=== PATIENT | male | born 1935 | race Caucasian/White ===

== ENCOUNTER 2019-06-22 15:55 | Inpatient (IN) | payer MEDICARE, BC, SELFPAY ==
[2019-06-22] VITALS (9 sets, daily range): BP systolic 147–232; BP diastolic 73–110; PULSE 70–91; RESP 16–20; TEMP 36.3–36.4; O2SAT 96–99; BMI 21.2; BMI 20.5
--- NOTE | 2019-06-22 16:17 | CT_ITS ---
STUDY: CT BRAIN WITHOUT CONTRAST REASON FOR EXAM: Male, 84 years old. PT WAS FOUND BY LAYING ON THE PATIO FLOOR. STATES HE DID HAVE LOC AND HAS NO IDEA WHAT HAPPENED. RADIATION DOSAGE (If Supplied By Facility): CTDIvol = ( 44.99 ) mGy, DLP = ( 779.24 ) mGycm TECHNIQUE: Transaxial CT imaging of the brain was performed without administration of intravenous contrast material. Individualized dose optimization techniques were used for this CT. COMPARISON: No relevant priors. FINDINGS: There is right periorbital soft tissue swelling. Nondisplaced nasal fractures identified. Normal calvarium. There is mild cerebral atrophy with widening of the extra-axial spaces and ventricular dilatation. There are areas of decreased attenuation within the white matter tracts of the supratentorial brain, consistent with microvascular disease changes. Normal basal ganglia and thalami. Normal brainstem. Normal cerebellum. There is no intracranial hemorrhage. There are no findings of an acute ischemic infarction. There is an air-fluid level in the right maxillary sinus. CT/Brain/Head without Contrast IMPRESSION: 1. No acute intracranial hemorrhage or mass effect. 2. Right periorbital soft tissue swelling/hematoma. 3. Central parenchymal volume loss. White matter changes that are nonspecific but most commonly associated with chronic small vessel ischemic disease. 4. Nondisplaced nasal fractures. Electronically Signed: Benji Boland MD at 16:58 EDT , Service support ,
--- NOTE | 2019-06-22 16:17 | EKG12_ITS ---
Test Reason : AM EKG Blood Pressure : / mmHG Vent. Rate : 058 BPM Atrial Rate : 058 BPM P-R Int : 220 ms QRS Dur : 088 ms QT Int : 452 ms P-R-T Axes : 055 042 082 degrees QTc Int : 443 ms Sinus bradycardia with 1st degree A-V block Otherwise normal ECG When compared with ECG of 22-JUN-2019 16:17, MANUAL COMPARISON REQUIRED, DATA IS UNCONFIRMED Confirmed by BREA IGNACIO ([id number]), makeup editor ABRAHAM DELATORRE ([id number]) on 06/28/2019 9:02:50 AM Referred By: Marvin Kamraa Confirmed By:BREA IGNACIO
--- NOTE | 2019-06-22 16:19 | CT_ITS ---
STUDY: CT FACIAL BONES WITHOUT CONTRAST REASON FOR EXAM: Male, 84 years old. PT WAS FOUND BY LAYING ON THE PATIO FLOOR. STATES HE DID HAVE LOC AND HAS NO IDEA WHAT HAPPENED. RADIATION DOSAGE (If Supplied By Facility): CTDIvol = ( 29.38 ) mGy, DLP = ( 576.84 ) mGycm TECHNIQUE: The patient was scanned in a multi detector CT scanner. Sagittal and coronal images were reconstructed. Individualized dose optimization techniques were used for this CT. COMPARISON: None. FINDINGS: Localized soft tissue swelling of the right malar and periorbital regions. Normal orbital [place] and orbital contents. There are nondisplaced nasal bone fractures with overlying soft tissue swelling. Normal facial bones. There is no other demonstrated fracture. There is an air-fluid level in the right maxillary sinus. CT/Sinus/Facial Bone IMPRESSION: 1. Nondisplaced nasal fractures. 2. Right periorbital soft tissue swelling/hematoma. 3. Right malar soft tissue swelling. 4. Air-fluid level in the right maxillary sinus but no associated sinus/orbital fracture seen. Electronically Signed: Benji Boland MD at 17:01 EDT , Service support ,
--- NOTE | 2019-06-22 16:21 | ED.VISSUMM ---
- ER Visit Summary Date of Service: 06/22/19 Chief Complaint: Syncope History of Present Illness: The patient is a 84 M who presents with a syncopal episode that occurred today. states that they were getting ready to go to the store when she found him laying on the patio floor. Patient does not remember what happened. states that patient had blood around his face and on the floor. states that he was walking around a few minutes before she found him on the floor. Patient denies any chest pain currently. Patient does admit to a headache. Patient denies any nausea or vomiting. Patient denies any recent fevers or chills. Patient denies any shortness of breath. Physical Examination: Vital signs are stable except for an elevated blood pressure of 203/110. Patient is afebrile. Patient is in no acute distress. Cranial nerves II through XII are intact. Strength is 5/5 bilaterally upper and lower extremities. There are no sensory deficits noted. Pupils are equal, round, and reactive to light bilaterally. Extraocular muscles are intact. There is edema and ecchymosis of the right periorbital area. There is no bony crepitance or step-off. Oral mucosa is pink and moist. Neck is supple. Trachea is midline. There is no JVD noted. Heart was regular rate and rhythm. Lungs are clear and equal bilaterally. Abdomen is soft and nontender. Test Results: EKG showed a sinus rhythm with first-degree AV block with a rate of 78. There are no acute ST or T wave changes. PA and lateral chest x-ray does not show any acute cardiopulmonary process. CBC, basic metabolic profile, PT with INR, PTT, urinalysis, and troponin were obtained and were all essentially within normal limits. CT scan of the brain was obtained and does not show any acute intracranial abnormality. CT scan of the facial bones was obtained. There is a nondisplaced nasal fracture. There are no other acute fractures. Emergency Department Course and Treatment: Patient was given a dose of clonidine initially. Patient had no improvement of his blood pressure with this. Patient was given a dose of labetalol. Patient's blood pressure is improving. Case was discussed with the hospitalist. Patient will be admitted for observation. Patient understood and was agreeable with the plan. All questions were answered. Disposition: Admit for observation Impression: 1. Syncope 2. Nasal fracture This note was generated with [employer] dictation software. It may contain incorrect words, spelling, and punctuation that were not noted in review of the chart prior to signing ED Disposition - Plan for ED Patient: Disposition: Acute Care Hospital [facility] Diagnosis: Syncope and collapse, Nasal fracture Referrals: Jonathan Holliday MD [Primary Care Provider] -
--- NOTE | 2019-06-22 16:27 | RAD_ITS ---
STUDY: X-RAY CHEST REASON FOR EXAM: Male, 84 years old.PT WAS FOUND BY LAYING ON THE PATIO FLOOR. STATES HE DID HAVE LOC AND HAS NO IDEA WHAT HAPPENED. TECHNIQUE: PA and lateral views of the chest. COMPARISON: None. FINDINGS: The lungs are clear but hyper expanded. There is no demonstrated pleural abnormality. Normal size heart. Sternal wires and prosthetic aortic valve demonstrated. Normal visualized pulmonary arteries. There is atherosclerotic tortuosity of the aortic arch and descending thoracic aorta. There is demineralization of the osseous structures. Normal visualized ribs, clavicles, and shoulders. There is no demonstrated abnormality of the visualized soft tissue structures of the upper abdomen. RAD/Chest PA and Lateral IMPRESSION: 1. No acute cardiopulmonary process. Electronically Signed: Benji Boland MD at 17:01 EDT , Service support ,
[2019-06-22 16:34] LABS: Absolute Lymphocyte Count 4.01 X10^3/uL (0.83-4.51); Absolute Neutrophil Count 3.5 X10^3/uL (2.0-7.7); Basophil# 0.02 X10^3/uL; Basophil% 0.2 % (0-1); Eosinophil# 0.14 X10^3/uL; Eosinophils% 1.6 % (0-5); Hematocrit 43.7 % (40-54); Hemoglobin 14.7 g/dL (13.0-16.5); Lymphocyte # 4.01 X10^3/ul (4.0); Lymphocyte % 44.9 % (19-41); Mean Corp Hgb Conc 33.6 g/dL (32-36); Mean Corpuscular Hgb 34.4 pg (27.0-32.0); Mean Corpuscular Volume 102.3 fL (80-94); Mean Platelet Vol. 10.3 fl (6.2-12.0); Monocyte% 13.4 % (0-10); NRBC Flagged by Analyzer 0 % (0-5); Neutrophil # 3.54 X10^3/uL (2.7-7.7); Neutrophil % 39.6 % (47-70); POSITIVE MORPHOLOGY YES; Platelet Count 162 K/mm3 (150-450); RBC Distribution Width CV 13.7 % (11.6-14.6); RBC Distribution Width SD 51.8 fl (35.1-43.9); Red Blood Count 4.27 M/mm3 (4.6-6.2); White Blood Count 8.9 K/mm3 (4.4-11.0)
[2019-06-22 16:39] LABS: International Normalized Ratio 1.1; Prothrombin Time (Protime)PT. 13.5 SECONDS (11.7-14.9)
[2019-06-22 16:44] LABS: Differential Indicated SCAN CRITERIA MET
[2019-06-22] MEDS: cloNIDine HCl 0.1 MG Tablet PO (16:45)
[2019-06-22 16:59] LABS: AST(SGOT) 26 U/L (15-37); Alanine Aminotransfer ALT/SGPT 41 U/L (16-61); Albumin, Serum 3.8 g/dL (3.2-5.0); Alkaline Phosphatase 65 U/L (45-117); Anion Gap 6 (5-15); BUN 24 mg/dL (7-18); BUN/Creat Ratio 28.2 RATIO (10-20); Calcium,Total 9.2 mg/dL (8.5-10.1); Chloride 107 mmol/L (98-107); Creatinine, Serum 0.85 mg/dL (0.70-1.30); EST Glomerular Filtration Rate 91 mL/min (>60); Est Glom Filt Rate - Afr Amer 110 mL/min (>60); Estimated Creatinine Clearance 58.11 ml/min; Globulin 3.8 g/dL (2.2-4.2); Glucose 127 mg/dL (74-106); Potassium 3.6 mmol/L (3.5-5.1); Protein, Total 7.6 g/dL (6.4-8.2); Sodium Level 140 mmol/L (136-145)
[2019-06-22 17:15] LABS: Anisocytosis 1+; Macrocytosis 1+; Platelet Estimate ADEQUATE (ADEQ); Toxic Granulation RARE
[2019-06-22 17:23] LABS: Bacteria 0 SEEN /hpf (None Seen); Mucous, Urine 0 SEEN /hpf (<or=2+); Squamous Epithelial Cells - UA 0 SEEN /hpf (0-5); White Blood Cells 0 SEEN /hpf (0-5)
[2019-06-22 17:24] LABS: Color, Urine Straw (Yellow); Glucose, Dipstick Normal (Normal); Ketone-Dipstick Negative (Negative); Leukocyte Esterase-Dipstick Negative /ul (Negative); Nitrite-Dipstick Negative (Negative); Occult Blood-Urine 25 /ul (Negative); Protein-Dipstick Negative (Negative); Specific Gravity, Urine 1.005 (1.002-1.030); Urine Bilirubin Dipstick Negative (Negative); Urine Clarity Clear (Clear); Urine Urobilinogen Normal (Normal)
[2019-06-22 17:34] LABS: Red Blood Cells-Urine 0-5 SEEN /hpf (0-5)
--- NOTE | 2019-06-22 20:34 | HP.PCM_ITS ---
Problem List (1) Syncope and collapse Status: Acute (2) Nasal fracture Status: Acute History of Present Illness Date of Admission: 06/22/19 Chief Complaint: Syncope The patient is a 84 year old M with past medical history of coronary artery disease status post CABG, hypertension, hyperlipidemia and likely others that he stopped taking medications for several months ago. He presents with an episode of syncope today. He was out cutting the grass in the heat and was not drinking any water and only had blueberries for lunch and he came back inside and was getting ready to go to the store with his and she found him face down on the ground. He woke up fairly quickly and was not groggy or postictal. She did not notice any seizure-like activity. But he did smack his face on the cement and has multiple facial injuries secondary to his fall. He does not remember any episodes of dizziness, lightheadedness, palpitations, shortness of breath, chest pain prior to his fall. In the ER face CT demonstrates nondisplaced nasal fractures, and right periorbital soft tissue swelling with hematoma. EKG was unremarkable though his blood pressure was elevated into the 180s systolic. Past Medical History Allergies atorvastatin [From Lipitor] Adverse Reaction (Verified 04/15/17 19:16) Other Surgical History: appendectomy, - - CABG Lives: Spouse/ Significant Other Smoking Status: Never smoker Alcohol: None Drugs: None - *Family History Maternal History Items: No pertinent history Paternal History Items: No pertinent history Review of Systems Constitutional: Denies: Chills, Fever, Weight Change Eyes: Reports: - - Facial pain with right orbital swelling and bruising HEENT: Denies: Eye Pain, Head Aches, Sinus Congestion, Sinus Drainage Cardiovascular: Denies: Chest Pain, Palpitations Respiratory: Denies: Cough, Shortness of breath at rest, Sputum production Gastrointestinal: Denies: Abdominal Pain, Nausea, Vomiting Genitourinary: Denies: Dysuria Musculoskeletal: Denies: Joint Pain, Joint Tenderness Skin: Denies: Rash, Wounds Neurological: Denies: Numbness, Tingling, Focal weakness Psychiatric: Denies: Anxiety, Depression Hematologic/ Lymphatic: Denies: Easy Bruising, Easy Bleeding VTE Information - Inpt Only VTE Present on Admission: No Patient Problems: Active and Suspected Problems Syncope and collapse (Acute) Nasal fracture (Acute) - Physical Exam General: Alert, Oriented x3, Cooperative, No apparent distress HEENT: PERRLA - Cannot evaluate secondary to his right eye being swollen shut, EOMI, - - Right periorbital swelling and ecchymosis Oral: Moist Mucosa Neck: Supple, No JVD Lungs: Clear to auscultation, Normal air movement, No rhonchi, No wheeze, No rales, Diminished Cardiovascular: Regular rate, Regular Rhythm, Normal S1, Normal S2, No murmurs Abdomen: Soft, Non Tender, Non-Distended, No Hepato-splenomegaly Extremities: No edema, Capillary Refill Less than 3 Seconds Skin: No rashes, No breakdown Neurological: Neuro grossly intact, Sensory exam intact to light touch and pain Psych/Mental Status: Normal Affect, Appropriate Vital Signs Temp Pulse Resp BP Pulse Ox 97.4 F L 85 18 200/104 H 97 06/22/19 15:56 06/22/19 19:13 06/22/19 17:53 06/22/19 19:13 06/22/19 17:53 Oxygen Delivery Method Room Air Weight: 140 lb Body Mass Index (BMI) 21.2 Laboratory Tests Past 24 Hrs 06/22/19 06/22/19 06/22/19 16:05 16:05 16:05 WBC 8.9 RBC 4.27 L Hgb 14.7 Hct 43.7 MCV 102.3 H MCH 34.4 H MCHC 33.6 RDW Std Deviation 51.8 H RDW Coeff of Dennis 13.7 Plt Count 162 MPV 10.3 Immature Gran % (Auto) 0.300 Neut % (Auto) 39.6 L Lymph % (Auto) 44.9 H [place] % (Auto) 13.4 H Eos % (Auto) 1.6 Baso % (Auto) 0.2 Absolute Neuts (auto) 3.5 Absolute Lymphs (auto) 4.01 Absolute Nucleated RBC 0.00 Nucleated RBC % 0 Diff Path Review May foll Toxic Granulation RARE Platelet Estimate ADEQUATE Anisocytosis 1+ Macrocytosis 1+ PT 13.5 INR 1.1 APTT 25.0 Sodium 140 Potassium 3.6 Chloride 107 Carbon Dioxide 27.0 Anion Gap 6 BUN 24 H Creatinine 0.85 Estim Creat Clear Calc 58.11 Est GFR (MDRD) Af Amer 110 Est GFR (MDRD) Non-Af 91 BUN/Creatinine Ratio 28.2 H Glucose 127 H Calcium 9.2 Total Bilirubin 0.50 AST 26 ALT 41 Alkaline Phosphatase 65 Troponin I Total Protein 7.6 Albumin 3.8 Globulin 3.8 Albumin/Globulin Ratio 1.0 Urine Color Urine Clarity Urine pH Ur Specific [place] Urine Protein Urine Glucose (UA) Urine Ketones Urine Occult Blood Urine Nitrite Urine Bilirubin Urine Urobilinogen Ur Leukocyte Esterase Urine RBC Urine WBC Ur Squamous Epith Cells Urine Bacteria Urine Mucus 06/22/19 06/22/19 17:15 18:05 WBC RBC Hgb Hct MCV MCH MCHC RDW Std Deviation RDW Coeff of [place] Plt Count MPV Immature Gran % (Auto) Neut % (Auto) Lymph % (Auto) [place] % (Auto) Eos % (Auto) Baso % (Auto) Absolute Neuts (auto) Absolute Lymphs (auto) Absolute Nucleated RBC Nucleated RBC % Diff Path Review Toxic Granulation Platelet Estimate Anisocytosis Macrocytosis PT INR APTT Sodium Potassium Chloride Carbon Dioxide Anion Gap BUN Creatinine Estim Creat Clear Calc Est GFR (MDRD) Af Amer Est GFR (MDRD) Non-Af BUN/Creatinine Ratio Glucose Calcium Total Bilirubin AST ALT Alkaline Phosphatase Troponin I < 0.015 Total Protein Albumin Globulin Albumin/Globulin Ratio Urine Color Straw Urine Clarity Clear Urine pH 7.0 Ur Specific [place] 1.005 Urine Protein Negative Urine Glucose (UA) Normal Urine Ketones Negative Urine Occult Blood 25 H Urine Nitrite Negative Urine Bilirubin Negative Urine Urobilinogen Normal Ur Leukocyte Esterase Negative Urine RBC 0-5 SEEN Urine WBC 0 SEEN Ur Squamous Epith Cells 0 SEEN Urine Bacteria 0 SEEN Urine Mucus 0 SEEN Assessment/Plan All Active Problems Syncope and collapse (Acute) Nasal fracture (Acute) 1. Syncope/CAD status post CABG/HTN/HLD -It sounds like this is orthostatic in nature, will start him on IV fluids and obtain an echo on Monday -Orthostatic vital signs -Continue with telemetry monitoring -He stopped all of his home medications because he did not like the way that made him feel, and he was not able to sleep at night with some -Stands the risks of stopping his medications, and he states that his PCP is aware that he has stopped all of his medications -Monitor his blood pressure and temporarily treat while in the hospital if necessary 2. Nondisplaced nasal fractures with periorbital swelling and ecchymosis -Denies any eye pain -Facial CT is negative for any orbital fractures, but he does have nondisplaced nasal fractures which she will need to follow-up with ENT as an outpatient for DVT: SCDs Code Visit OBSV E&M: 51785 Initial observation care L2
--- NOTE | 2019-06-22 20:53 | ECHOD_ITS ---
Reason For Study: Syncope, Near Syncope Procedure This was a 2D Doppler, Color Flow transthoracic echocardiogram. Exam performed portable in patient room. Left Ventricle Normal LV size. Moderate concentric left ventricular hypertrophy. Left ventricular systolic function is normal. Stage 1 diastolic dysfunction. The estimated ejection fraction is 65 %. No regional wall motion abnormalities noted. Right Ventricle Normal RV size. Normal systolic function. Atria Normal left atrium. Normal right atrium. Mitral Valve Normal mitral valve. Tricuspid Valve Normal tricuspid valve. Aortic Valve Bioprosthetic aortic valve. Pulmonic Valve Normal pulmonic valve. Great Vessels Normal aortic root. The pulmonary artery is normal size. Normal inferior vena cava. Pericardium/Pleural No pericardial effusion. MMode/2D Measurements & Calculations LVIDd: 3.8 cm IVSd: 1.7 cm LVOT diam: 2.1 cm LVIDs: 1.8 cm LVPWd: 1.4 cm LVOT area: 3.5 cm2 RVDd: 3.2 cm FS: 53.1 % Ao root diam: 3.7 cm LAV(MOD-bp): 52.7 ml LVAd ap4: 21.6 cm2 LAV(MOD-bp) Indexed: 30.6 ml/m2 EDV(MOD-sp4): 52.0 ml LAV(MOD-sp2): 58.9 ml EDV(sp4-el): 52.3 ml LAV(MOD-sp4): 45.3 ml LVAs ap4: 10.8 cm2 ESV(MOD-sp4): 16.2 ml ESV(sp4-el): 15.6 ml EF(MOD-sp4): 68.8 % EF(sp4-el): 70.2 % SV(MOD-sp4): 35.8 ml SV(sp4-el): 36.8 ml LA A4 area: 17.3 cm2 LA dimension(2D): 3.6 cm RA A4 area: 20.3 cm2 Doppler Measurements & Calculations MV E max nirav: 75.5 cm/sec Lat Peak E' Nirav: 6.8 cm/sec Med Peak E' Nirav: 5.2 cm/sec MV A max nirav: 87.9 cm/sec E/E' lat: 11.0 E/E' med: 14.6 MV E/A: 0.86 Ao V2 max: 249.6 cm/sec LV V1 max: 157.3 cm/sec SV(LVOT): 107.4 ml Ao max P.9 mmHg LV V1 max P.9 mmHg Ao V2 mean: 152.2 cm/sec LV V1 mean P.9 mmHg Ao mean P.9 mmHg LV V1 mean: 102.9 cm/sec Ao V2 VTI: 42.6 cm LV V1 VTI: 31.1 cm MIKIE(I,D): 2.5 cm2 MIKIE(V,D): 2.2 cm2 PA V2 max: 115.6 cm/sec PI end-d nirav: 95.3 cm/sec TR max nirav: 235.3 cm/sec TR max P.2 mmHg Interpretation Summary Normal LV size. Moderate concentric left ventricular hypertrophy. Left ventricular systolic function is normal. Stage 1 diastolic dysfunction. The estimated ejection fraction is 65 %. Bioprosthetic aortic valve. Ordering Physician: Marvin Kamara Referring Physician: Jonathan Holliday Performed By: Laure Johnson, ALMAZ, RVT
[2019-06-22] MEDS: 0.9% Normal Saline 1,000 ML 100 ML IV (22:00)
[2019-06-22] MEDS: 0.9% NaCl Peripheral Flush Adult/Peds IV (22:00)
[2019-06-23] VITALS (12 sets, daily range): BP systolic 121–163; BP diastolic 51–91; PULSE 55–96; RESP 16–18; TEMP 36.4–37.3; O2SAT 96–98
[2019-06-23 05:24] LABS: Absolute Lymphocyte Count 3.15 X10^3/uL (0.83-4.51); Absolute Neutrophil Count 4.6 X10^3/uL (2.0-7.7); Basophil# 0.02 X10^3/uL; Basophil% 0.2 % (0-1); Hematocrit 37.1 % (40-54); Hemoglobin 12.5 g/dL (13.0-16.5); Lymphocyte # 3.15 X10^3/ul (4.0); Lymphocyte % 35.1 % (19-41); Mean Corp Hgb Conc 33.7 g/dL (32-36); Mean Corpuscular Hgb 34.4 pg (27.0-32.0); Mean Corpuscular Volume 102.2 fL (80-94); Mean Platelet Vol. 9.9 fl (6.2-12.0); Monocyte# 1.15 X10^3/uL; Monocyte% 12.8 % (0-10); NRBC Flagged by Analyzer 0 % (0-5); Neutrophil # 4.63 X10^3/uL (2.7-7.7); Neutrophil % 51.7 % (47-70); Platelet Count 136 K/mm3 (150-450); RBC Distribution Width CV 13.3 % (11.6-14.6); RBC Distribution Width SD 50.4 fl (35.1-43.9); Red Blood Count 3.63 M/mm3 (4.6-6.2)
[2019-06-23 05:36] LABS: Anion Gap 9 (5-15); BUN 23 mg/dL (7-18); BUN/Creat Ratio 27.2 RATIO (10-20); Calcium,Total 8.4 mg/dL (8.5-10.1); Chloride 107 mmol/L (98-107); Creatinine, Serum 0.85 mg/dL (0.70-1.30); EST Glomerular Filtration Rate 92 mL/min (>60); Est Glom Filt Rate - Afr Amer 111 mL/min (>60); Estimated Creatinine Clearance 55.91 ml/min; Glucose 115 mg/dL (74-106); Potassium 3.7 mmol/L (3.5-5.1); Sodium Level 143 mmol/L (136-145)
[2019-06-23] MEDS: 0.9% Normal Saline 1,000 ML 100 ML IV (06:44)
--- NOTE | 2019-06-23 09:10 | CDU_ITS ---
Reason For Study: SYNCOPE Rt. Velocities/BP Lt. Velocities/BP Prox CCA 62/17 cm/sec. Prox CCA 88/22 cm/sec. Mid CCA 81/19 cm/sec. Mid CCA 132/20 cm/sec. Dist CCA 68/17 cm/sec. Dist CCA 103/17 cm/sec. Prox ICA 106/25 cm/sec. Prox ICA 158/39 cm/sec. Mid ICA 106/29 cm/sec. Mid ICA 171/31 cm/sec. Dist ICA 115/30 cm/sec. Dist ICA 111/31 cm/sec. Rt. ICA/CCA = 1.4. Lt. ICA/CCA = 1.3. Prox ECA 107/17 cm/sec. Prox ECA 90/9 cm/sec. Rt. Vert. 41/10 cm/sec. Lt. Vert. 42/11 cm/sec. Right Extracranial There is heterogeneous, smooth atherosclerotic plaque noted in the right common carotid artery. There is heterogeneous, irregular atherosclerotic plaque noted in the right internal carotid artery. There is heterogeneous, irregular atherosclerotic plaque noted in the right external carotid artery. Antegrade flow is noted in the right vertebral artery. Left Extracranial There is heterogeneous, smooth atherosclerotic plaque noted in the left common carotid artery. There is heterogeneous, irregular atherosclerotic plaque noted in the left internal carotid artery. There is heterogeneous, irregular atherosclerotic plaque noted in the left external carotid artery. Antegrade flow is noted in the left vertebral artery. Procedure Carotid Duplex [id number]. Exam performed portable in patient room. Interpretation Summary Mild (<50%) stenosis right extracranial internal carotid. Moderate (50-69%) stenosis left extracranial internal carotid. Flow within the vertebral arteries is antegrade bilaterally. Ordering Physician: Alfredo Villarreal Referring Physician: DAWN WAITE Performed By: Marisol Dash, ALMAZ, RVT
--- NOTE | 2019-06-23 10:04 | PCM.PROGNOTE ---
Patient Problems: Active and Suspected Problems Syncope and collapse (Acute) Nasal fracture (Acute) Subjective: Patient was seen and examined today, I talked to him about his episode of syncope-patient states the episode happened suddenly, he has vague memory after the episode, he walked back into the house but does not remember events clearly after the episode. Patient states that he did not lose bowel or bladder function, it was unknown how long he was out. Patient had been up walking for a while before the episode happened, he states he got up and walked around a little bit and then went outside when the episode happened. Patient denies any chest pain or shortness of breath. Patient is taking no medications at home, when he came in the emergency room he was hypertensive and given medications for hypertension, this morning patient's blood pressure is normal. 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 - Physical Exam General: Alert, Oriented x3, Cooperative, No apparent distress, Well developed HEENT: Atraumatic, PERRLA, EOMI, Normocephalic, - - Patient has ecchymosis around the right eye and orbit, he cannot open his eyelid, patient's nose is swollen. Oral: Moist Mucosa Neck: Supple, No JVD, Negative Carotid Bruits, Trachea Midline, Thyroid Normal Size and Texture Lungs: Clear to auscultation, Normal air movement, No rhonchi, No wheeze, No rales Cardiovascular: Regular rate, Regular Rhythm, Normal S1, Normal S2, Murmur - There is a 2/6 systolic murmur noted at the left sternal border Abdomen: Bowel Sounds Present, Soft, Non Tender, Non-Distended Extremities: No clubbing, No cyanosis, No edema, Capillary Refill Less than 3 Seconds Skin: No rashes, No breakdown Musculoskeletal: No Tenderness to Palpation of Joints or Extremities Neurological: Cranial nerves II-XII grossly intact, Neuro grossly intact, Sensory exam intact to light touch and pain, Coordination normal Psych/Mental Status: Normal Affect, Appropriate, Alert and oriented to time, place, person, mood and affect Vital Signs Temp Pulse Resp BP Pulse Ox 98.6 F 58 L 16 126/67 H 97 06/23/19 08:59 06/23/19 08:59 06/23/19 08:59 06/23/19 08:59 06/23/19 08:59 Oxygen Delivery Method Room Air Weight: 61.1 kg Body Mass Index (BMI) 20.5 Orthostatic Vital Signs Start: 06/22/19 22:23 Freq: q24h Status: Active Protocol: Activity Type Activity Date Activity User E-Sign Co-Sign Detail Recorded Client Recorded Date Recorded By Document 06/23/19 03:19 [facility] [id number] 06/23/19 03:23 [facility] 06/23/19 03:19 Orthostatic Vitals Standing -Blood Pressure (90/60-120/80) 143/82 H -Extremity Use Right Arm -Pulse Rate (60-100) 81 Sitting -Blood Pressure (90/60-120/80) 142/76 H -Extremity Use Right Arm -Pulse Rate (60-100) 71 Lying -Blood Pressure (90/60-120/80) 135/67 H -Extremity Use Right Arm -Pulse Rate (60-100) 67 Intake and Output for Last 24 Hours 06/21/19 06/22/19 06/23/19 23:59 23:59 23:59 Intake Total 367 / 367 836 / 836 Output Total 300 / 300 Balance 367 / 367 536 / 536 Laboratory Tests Past 24 Hrs 06/22/19 06/22/19 06/22/19 16:05 16:05 16:05 WBC 8.9 RBC 4.27 L Hgb 14.7 Hct 43.7 MCV 102.3 H MCH 34.4 H MCHC 33.6 RDW Std Deviation 51.8 H RDW Coeff of Dennis 13.7 Plt Count 162 MPV 10.3 Immature Gran % (Auto) 0.300 Neut % (Auto) 39.6 L Lymph % (Auto) 44.9 H [place] % (Auto) 13.4 H Eos % (Auto) 1.6 Baso % (Auto) 0.2 Absolute Neuts (auto) 3.5 Absolute Lymphs (auto) 4.01 Absolute Nucleated RBC 0.00 Nucleated RBC % 0 Diff Path Review May foll Toxic Granulation RARE Platelet Estimate ADEQUATE Anisocytosis 1+ Macrocytosis 1+ PT 13.5 INR 1.1 APTT 25.0 Sodium 140 Potassium 3.6 Chloride 107 Carbon Dioxide 27.0 Anion Gap 6 BUN 24 H Creatinine 0.85 Estim Creat Clear Calc 58.11 Est GFR (MDRD) Af Amer 110 Est GFR (MDRD) Non-Af 91 BUN/Creatinine Ratio 28.2 H Glucose 127 H Calcium 9.2 Total Bilirubin 0.50 AST 26 ALT 41 Alkaline Phosphatase 65 Troponin I Total Protein 7.6 Albumin 3.8 Globulin 3.8 Albumin/Globulin Ratio 1.0 Urine Color Urine Clarity Urine pH Ur Specific [place] Urine Protein Urine Glucose (UA) Urine Ketones Urine Occult Blood Urine Nitrite Urine Bilirubin Urine Urobilinogen Ur Leukocyte Esterase Urine RBC Urine WBC Ur Squamous Epith Cells Urine Bacteria Urine Mucus 06/22/19 06/22/19 06/23/19 17:15 18:05 05:15 WBC 9.0 RBC 3.63 L Hgb 12.5 L Hct 37.1 L MCV 102.2 H MCH 34.4 H MCHC 33.7 RDW Std Deviation 50.4 H RDW Coeff of Dennis 13.3 Plt Count 136 L MPV 9.9 Immature Gran % (Auto) 0.200 Neut % (Auto) 51.7 Lymph % (Auto) 35.1 [place] % (Auto) 12.8 H Eos % (Auto) 0.0 Baso % (Auto) 0.2 Absolute Neuts (auto) 4.6 Absolute Lymphs (auto) 3.15 Absolute Nucleated RBC 0.00 Nucleated RBC % 0 Diff Path Review Toxic Granulation Platelet Estimate Anisocytosis Macrocytosis PT INR APTT Sodium Potassium Chloride Carbon Dioxide Anion Gap BUN Creatinine Estim Creat Clear Calc Est GFR (MDRD) Af Amer Est GFR (MDRD) Non-Af BUN/Creatinine Ratio Glucose Calcium Total Bilirubin AST ALT Alkaline Phosphatase Troponin I < 0.015 Total Protein Albumin Globulin Albumin/Globulin Ratio Urine Color Straw Urine Clarity Clear Urine pH 7.0 Ur Specific [place] 1.005 Urine Protein Negative Urine Glucose (UA) Normal Urine Ketones Negative Urine Occult Blood 25 H Urine Nitrite Negative Urine Bilirubin Negative Urine Urobilinogen Normal Ur Leukocyte Esterase Negative Urine RBC 0-5 SEEN Urine WBC 0 SEEN Ur Squamous Epith Cells 0 SEEN Urine Bacteria 0 SEEN Urine Mucus 0 SEEN 06/23/19 05:15 WBC RBC Hgb Hct MCV MCH MCHC RDW Std Deviation RDW Coeff of [place] Plt Count MPV Immature Gran % (Auto) Neut % (Auto) Lymph % (Auto) [place] % (Auto) Eos % (Auto) Baso % (Auto) Absolute Neuts (auto) Absolute Lymphs (auto) Absolute Nucleated RBC Nucleated RBC % Diff Path Review Toxic Granulation Platelet Estimate Anisocytosis Macrocytosis PT INR APTT Sodium 143 Potassium 3.7 Chloride 107 Carbon Dioxide 27.0 Anion Gap 9 BUN 23 H Creatinine 0.85 Estim Creat Clear Calc 55.91 Est GFR (MDRD) Af Amer 111 Est GFR (MDRD) Non-Af 92 BUN/Creatinine Ratio 27.2 H Glucose 115 H Calcium 8.4 L Total Bilirubin AST ALT Alkaline Phosphatase Troponin I Total Protein Albumin Globulin Albumin/Globulin Ratio Urine Color Urine Clarity Urine pH Ur Specific [place] Urine Protein Urine Glucose (UA) Urine Ketones Urine Occult Blood Urine Nitrite Urine Bilirubin Urine Urobilinogen Ur Leukocyte Esterase Urine RBC Urine WBC Ur Squamous Epith Cells Urine Bacteria Urine Mucus Medical Necessity - Tobacco Use Smoking Status: Never smoker Assessment/Plan All Active Problems Syncope and collapse (Acute) Nasal fracture (Acute) #1 syncope-etiology unclear at this point, I do not think the patient had a seizure, there may be a cardiac etiology to his syncope, echocardiogram is ordered but will not be performed until tomorrow, I have ordered carotid duplex scans to rule out any significant stenosis but I feel this will probably be normal. Patient may need a 30-day Holter monitor when he is discharged, I have elected to have cardiology see the patient to give input. #2 nasal fracture-this is nondisplaced, patient will need follow-up as an outpatient #3 right periorbital ecchymosis-supportive care #4 transient hypertension-this may be due to his trauma, I will monitor patient's blood pressure, I have no plans to place the patient on any blood pressure medicine at the present time #5 first-degree AV block on EKG Code Visit Inpatient E&M: 49890 Init Hosp L3
[2019-06-23] MEDS: Ensure Clear 120 ML Liquid PO ×2 (14:15→18:15)
--- NOTE | 2019-06-23 15:27 | PCM.CONS.C ---
Problem List (1) Syncope and collapse Status: Acute Reason for Consult Date of Consultation: 06/23/19 History of Present Illness: The patient is a 84 year old M with past medical history of coronary artery disease status post CABG, hypertension, hyperlipidemia and likely others that he stopped taking medications for several months ago. He presents with an episode of syncope today. He was out cutting the grass in the heat and was not drinking any water and only had blueberries for lunch and he came back inside and was getting ready to go to dinner with his . He went to the back patio to look for his glasses. His found his glasses in the bedroom and then went looking for him and she found him face down on the ground. He woke up fairly quickly and was not groggy or postictal. She did not notice any seizure-like activity. But he did smack his face on the cement and has multiple facial injuries secondary to his fall. He does not remember any episodes of dizziness, lightheadedness, palpitations, shortness of breath, chest pain prior to his fall. In the ER face CT demonstrates nondisplaced nasal fractures, and right periorbital soft tissue swelling with hematoma. EKG was unremarkable though his blood pressure was elevated into the 180s systolic. Prior to CABG patient had fatigue which improved after CABG. He did not have any similar symptoms prior to this episode. Review of systems: All systems reviewed. All else is negative except that in the HPI. ] Past Medical History Allergies/Adverse Reactions: Allergies atorvastatin [From Lipitor] Adverse Reaction (Verified 06/22/19 21:16) Other Surgical History: appendectomy, - - CABG - *Family History Maternal History Items: No pertinent history Paternal History Items: No pertinent history Lives: Spouse/ Significant Other Smoking Status: Never smoker Alcohol: None Drugs: None Objective: Vital Signs Temp Pulse Resp BP Pulse Ox 98.9 F 58 L 18 121/51 H 96 06/23/19 14:58 06/23/19 14:59 06/23/19 14:58 06/23/19 14:58 06/23/19 14:58 Oxygen Delivery Method Room Air Weight: 134 lb 11.239 oz Body Mass Index (BMI) 20.5 Orthostatic Vital Signs Start: 06/22/19 22:23 Freq: q24h Status: Active Protocol: Activity Type Activity Date Activity User E-Sign Co-Sign Detail Recorded Client Recorded Date Recorded By Document 06/23/19 03:19 [facility] [id number] 06/23/19 03:23 [facility] 06/23/19 03:19 Orthostatic Vitals Standing -Blood Pressure (90/60-120/80) 143/82 H -Extremity Use Right Arm -Pulse Rate (60-100) 81 Sitting -Blood Pressure (90/60-120/80) 142/76 H -Extremity Use Right Arm -Pulse Rate (60-100) 71 Lying -Blood Pressure (90/60-120/80) 135/67 H -Extremity Use Right Arm -Pulse Rate (60-100) 67 Intake and Output for Last 24 Hours 06/21/19 06/22/19 06/23/19 23:59 23:59 23:59 Intake Total 367 / 367 1528 / 1528 Output Total 600 / 600 Balance 367 / 367 928 / 928 General: Awake, Alert, Oriented x 3 HEENT: - - Ecchymosis in the right periorbital region Oral: Moist Mucosa Neck: Supple Lungs: Clear to auscultation Cardiovascular: Normal S1, Normal S2 - Ejection systolic murmur is heard Abdomen: Soft Extremities: No edema Psych/Mental Status: Appropriate 06/22/19 16:05: WBC 8.9, RBC 4.27 L, Hgb 14.7, Hct 43.7, MCV 102.3 H, MCH 34.4 H, MCHC 33.6, Plt Count 162, MPV 10.3, Immature Gran % (Auto) 0.300, Neut % (Auto) 39.6 L, Lymph % (Auto) 44.9 H, [place] % (Auto) 13.4 H, Eos % (Auto) 1.6, Baso % (Auto) 0.2, Absolute Neuts (auto) 3.5, Nucleated RBC % 0 06/22/19 16:05: PT 13.5, INR 1.1, APTT 25.0 06/22/19 16:05: Sodium 140, Potassium 3.6, Chloride 107, Carbon Dioxide 27.0, Anion Gap 6, BUN 24 H, Creatinine 0.85, Est GFR (MDRD) Af Amer 110, Est GFR (MDRD) Non-Af 91, BUN/Creatinine Ratio 28.2 H, Glucose 127 H, Calcium 9.2, Total Bilirubin 0.50 06/22/19 17:15: Urine Color Straw, Urine Clarity Clear, Urine pH 7.0, Ur Specific [place] 1.005, Urine Protein Negative, Urine Glucose (UA) Normal, Urine Ketones Negative, Urine Occult Blood 25 H, Urine Nitrite Negative, Urine Bilirubin Negative, Urine Urobilinogen Normal, Ur Leukocyte Esterase Negative, Urine RBC 0-5 SEEN, Urine WBC 0 SEEN 06/22/19 18:05: Troponin I < 0.015 06/23/19 05:15: WBC 9.0, RBC 3.63 L, Hgb 12.5 L, Hct 37.1 L, MCV 102.2 H, MCH 34.4 H, MCHC 33.7, Plt Count 136 L, MPV 9.9, Immature Gran % (Auto) 0.200, Neut % (Auto) 51.7, Lymph % (Auto) 35.1, [place] % (Auto) 12.8 H, Eos % (Auto) 0.0, Baso % (Auto) 0.2, Absolute Neuts (auto) 4.6, Nucleated RBC % 0 06/23/19 05:15: Sodium 143, Potassium 3.7, Chloride 107, Carbon Dioxide 27.0, Anion Gap 9, BUN 23 H, Creatinine 0.85, Est GFR (MDRD) Af Amer 111, Est GFR (MDRD) Non-Af 92, BUN/Creatinine Ratio 27.2 H, Glucose 115 H, Calcium 8.4 L Rhythm: EKG: ECHO: Stress Test: Cardiac Cath: PCI: CT Surgery: Holter monitor: EPS: PPM: CXR: Chest CT Scan: Assessment/Plan 1. Syncope: This does appear to be orthostatic and related to dehydration. However it is reasonable to rule out any significant arrhythmias by continuing to monitor him on telemetry. Patient has bioprosthetic aortic valve that was placed 3 years ago at the time of his CABG. We will check a 2D echo. We will also check a AMGasiscan Myoview stress test. Patient may need a 48-hour Holter at the time of discharge. 2. Coronary artery disease: Status post three-vessel CABG 3 years ago. Patient is not on any medications at this time. Atorvastatin is listed as an allergy. We will discuss trying a different statin prior to discharge. At this time he has significant ecchymosis in the periorbital region and nasal fracture. Aspirin can be started at a later date. His heart rate is on the low side and so we will not start him on a beta-nathanael at this time.
[2019-06-24] VITALS (9 sets, daily range): BP systolic 101–192; BP diastolic 50–90; PULSE 57–167; RESP 18; TEMP 36.7–36.9; O2SAT 96–98
[2019-06-24 05:31] LABS: Absolute Lymphocyte Count 3.17 X10^3/uL (0.83-4.51); Absolute Neutrophil Count 3.7 X10^3/uL (2.0-7.7); Basophil# 0.02 X10^3/uL; Basophil% 0.2 % (0-1); Hematocrit 39.8 % (40-54); Hemoglobin 13.3 g/dL (13.0-16.5); Lymphocyte # 3.17 X10^3/ul (4.0); Lymphocyte % 39.4 % (19-41); Mean Corp Hgb Conc 33.4 g/dL (32-36); Mean Corpuscular Hgb 34.5 pg (27.0-32.0); Mean Corpuscular Volume 103.4 fL (80-94); Mean Platelet Vol. 10.1 fl (6.2-12.0); Monocyte# 1.18 X10^3/uL; Monocyte% 14.7 % (0-10); NRBC Flagged by Analyzer 0 % (0-5); Neutrophil # 3.66 X10^3/uL (2.7-7.7); Neutrophil % 45.5 % (47-70); Platelet Count 144 K/mm3 (150-450); RBC Distribution Width CV 13.8 % (11.6-14.6); RBC Distribution Width SD 52.7 fl (35.1-43.9); Red Blood Count 3.85 M/mm3 (4.6-6.2); White Blood Count 8.1 K/mm3 (4.4-11.0)
--- NOTE | 2019-06-24 05:55 | EKG12_ITS ---
Test Reason : SYNCOPE Blood Pressure : / mmHG Vent. Rate : 078 BPM Atrial Rate : 078 BPM P-R Int : 240 ms QRS Dur : 098 ms QT Int : 414 ms P-R-T Axes : 066 031 083 degrees QTc Int : 471 ms Sinus rhythm with 1st degree A-V block Nonspecific ST and T wave abnormality Abnormal ECG Confirmed by JANA GILLETTE, DAISY ([id number]), food editor ABRAHAM DELATORRE ([id number]) on 06/24/2019 1:57:18 PM Referred By: Marvin Kamara Confirmed By:CHAN BATES MD
[2019-06-24] MEDS: Ensure Clear 120 ML Liquid PO ×2 (10:16→13:48)
--- NOTE | 2019-06-24 10:27 | CASEMGMT ---
LEA WRIGHT assessment: Face to Face with patient for initial transition planning/care coordination assessment. LEA WRIGHT introduced self and role at [facility], pt voices understanding and consents to assessment at this time. Pt is sitting up in chair in no distress at this time. Pt is A/Ox4 at this time and answers all questions appropriately at this time. Pt noted to have purple bruising/swelling to face at this time s/p fall at home prior to admission. Care providers, pharmacy, and demographics verified at this time. PCP: Mg Specialists: Pt states currently has not specialists. Preferred Pharmacy: [facility] Insurance: MCR A/B, [place] Prescription Benefit: MCR A/B, [place] Living Will/HPOA: Pt states does have LW/HPOA and is aware that they are not currently on file at [facility] at this time. Pt states that his , Charo Gross, is HPOA. LNOK: Charo Gross, Living Arrangements: Pt lives with in 1 story home with finished basement and states no concerns at home at this time. Pt states bilat rails to steps going to basement. Pt states is independent with ADL's. Transportation: Pt states drives self and states no transportation concerns at this time. DME/HHC: Pt states has grab bars and rails and states no need for any DME at this time. Pt states hx of HHC in the past but states no SNF in the past. Therapy is recommending HHC PT at this time. Pt declines HHC PT and OP therapy at this time. Pt states no concerns with going home at time of discharge. 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 Pt states does not smoke or drink ETOH. Pt states no further concerns/needs at this time. CM to follow for any further discharge planning/needs. Advised pt to ask for CM if any further questions/concerns/needs arise, voices understanding. Pt Goal: Home Plan[place] LE[place]
--- NOTE | 2019-06-24 10:55 | PCM.PROGNOTE ---
<Heladio Hernandez - Last Filed: 06/24/19 10:55> Patient Problems: Active and Suspected Problems Syncope and collapse (Acute) Nasal fracture (Acute) Subjective: Pt resting comfortably in bed NAD. He was walking outside, feeling fine, when he suddenly collapsed and woke up on the ground. He denies feeling sudden dizziness/LH. He has no hx seizures. No shaking, tongue biting, loss of bowel/bladder control. He has facial swelling from where he struck his head but denies pain. No CP, no palp, no dizzy/LH today either. - Physical Exam General: Alert, Oriented x3, Cooperative HEENT: Atraumatic, PERRLA, EOMI, Normocephalic Neck: Supple, No JVD, Negative Carotid Bruits Lungs: Clear to auscultation, Normal air movement Cardiovascular: Regular rate, No murmurs Abdomen: Bowel Sounds Present, Soft, Non Tender Extremities: No edema, Capillary Refill Less than 3 Seconds Skin: No rashes, No breakdown Musculoskeletal: No Tenderness to Palpation of Joints or Extremities Neurological: Cranial nerves II-XII grossly intact Psych/Mental Status: Normal Affect, Appropriate, Alert and oriented to time, place, person, mood and affect Vital Signs Temp Pulse Resp BP Pulse Ox 98.3 F 67 18 173/83 H 98 06/24/19 10:15 06/24/19 10:15 06/24/19 10:15 06/24/19 10:15 06/24/19 10:15 Oxygen Delivery Method Room Air Weight: 134 lb 11.239 oz Body Mass Index (BMI) 20.5 Orthostatic Vital Signs Start: 06/22/19 22:23 Freq: q24h Status: Active Protocol: Activity Type Activity Date Activity User E-Sign Co-Sign Detail Recorded Client Recorded Date Recorded By Document 06/23/19 21:46 CM [id number] 06/23/19 21:51 CM 06/23/19 21:46 Orthostatic Vitals Standing -Blood Pressure (90/60-120/80) 151/91 H -Extremity Use Right Arm -Pulse Rate (60-100) 70 Sitting -Blood Pressure (90/60-120/80) 163/77 H -Extremity Use Right Arm -Pulse Rate (60-100) 72 Lying -Blood Pressure (90/60-120/80) 156/81 H -Extremity Use Right Arm -Pulse Rate (60-100) 96 Intake and Output for Last 24 Hours 06/22/19 06/23/19 06/24/19 23:59 23:59 23:59 Intake Total 367 / 367 2078 / 2578 900 / 900 Output Total 600 / 600 Balance 367 / 367 1477 / 1977 900 / 900 Laboratory Tests Past 24 Hrs 06/24/19 05:20 WBC 8.1 RBC 3.85 L Hgb 13.3 Hct 39.8 L MCV 103.4 H MCH 34.5 H MCHC 33.4 RDW Std Deviation 52.7 H RDW Coeff of Dennis 13.8 Plt Count 144 L MPV 10.1 Immature Gran % (Auto) 0.200 Neut % (Auto) 45.5 L Lymph % (Auto) 39.4 [place] % (Auto) 14.7 H Eos % (Auto) 0.0 Baso % (Auto) 0.2 Absolute Neuts (auto) 3.7 Absolute Lymphs (auto) 3.17 Absolute Nucleated RBC 0.00 Nucleated RBC % 0 Medical Necessity - Tobacco Use Smoking Status: Never smoker Assessment/Plan All Active Problems Syncope and collapse (Acute) Nasal fracture (Acute) 1. Syncope - likely not seizure. No events on tele. Has 1st degree AV block. Echocardiogram and carotid US pending. Stress test pending. 2. Nasal fracture, periorbital ecchymosis - denies pain 3. Hx CAD prior CABG, HTN, HLD - not on any home meds for CAD. 4. Hx Bovine Aortic valve DVT ppx:SCDs DC planning: pending workup This patient was seen by Heladio Hernandez PA-C under the supervision of Dr. Goldman. <Claudio Goldman - Last Filed: 06/24/19 12:09> - Physical Exam Vital Signs Temp Pulse Resp BP Pulse Ox 98.3 F 167 H 18 178/75 H 98 06/24/19 10:15 06/24/19 11:30 06/24/19 10:15 06/24/19 11:30 06/24/19 10:15 Oxygen Delivery Method Room Air Weight: 61.1 kg Body Mass Index (BMI) 20.5 Orthostatic Vital Signs Start: 06/22/19 22:23 Freq: q24h Status: Active Protocol: Activity Type Activity Date Activity User E-Sign Co-Sign Detail Recorded Client Recorded Date Recorded By Document 06/24/19 11:01 HECTOR [id number] 06/24/19 11:05 MT 06/24/19 11:01 Orthostatic Vitals Standing -Blood Pressure (90/60-120/80) 192/90 H -Extremity Use Right Arm -Pulse Rate (60-100) 76 Sitting -Blood Pressure (90/60-120/80) 178/82 H -Extremity Use Right Arm -Pulse Rate (60-100) 68 Lying -Blood Pressure (90/60-120/80) 178/75 H -Extremity Use Right Arm -Pulse Rate (60-100) 67 Intake and Output for Last 24 Hours 06/22/19 06/23/19 06/24/19 23:59 23:59 23:59 Intake Total 367 / 367 2078 / 2578 900 / 900 Output Total 600 / 600 Balance 367 / 367 1477 / 1977 900 / 900 Laboratory Tests Past 24 Hrs 06/24/19 05:20 WBC 8.1 RBC 3.85 L Hgb 13.3 Hct 39.8 L MCV 103.4 H MCH 34.5 H MCHC 33.4 RDW Std Deviation 52.7 H RDW Coeff of [place] 13.8 Plt Count 144 L MPV 10.1 Immature Gran % (Auto) 0.200 Neut % (Auto) 45.5 L Lymph % (Auto) 39.4 [place] % (Auto) 14.7 H Eos % (Auto) 0.0 Baso % (Auto) 0.2 Absolute Neuts (auto) 3.7 Absolute Lymphs (auto) 3.17 Absolute Nucleated RBC 0.00 Nucleated RBC % 0 Assessment/Plan This patient was seen in conjunction with Heladio Hernandez PA-C . I have independently interviewed and examined the patient and reviewed pertinent historical, laboratory, and other data. Please refer to Heladio Hernandez PA-C note for details of this patient's presentation, findings, and recommendations. I have reviewed Heladio Hernandez PA-C note and concur with documented findings. In brief, patient is a 84-year-old gentleman admitted with a syncopal episode Physical Examination: GENERAL: cooperative HEENT: Periorbital bruising EYES; Anicteric, NECK; supple, normal thyroid, RESPIRATORY: Diminished to auscultation CARDIOVASCULAR: Regular S1 S2, GI: soft, non-tender, normoactive bowel sounds, : No Renal angle tenderness; NEURO: Awake; no lateralizing signs. SKIN: No Rash PSYCH; Normal affect Assessment: 1. Syncopal episode suspected to be secondary to orthostatic hypotension 2. Nasal fracture with periorbital bruising following patients for 3. Essential hypertension 4. Dyslipidemia 5. CAD with previous CABG 6. 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 I have discussed the results of my overview and impressions with the patient 2. Options for management were reviewed Code Visit OBSV E&M: 18187 Subsequent observation care L3
--- NOTE | 2019-06-24 11:10 | STRESSREP ---
Stress Test Report Pharmacologic myocardial perfusion stress test. 84-year-old male with a history of chest pain. Stress protocol: Resting EKG demonstrates sinus rhythm with a rate of 55 bpm normal intervals are noted resting blood pressures 164/80 mmHg. 0.4 mg of regadenoson was infused per usual protocol followed by rapid intravenous and flush injection continuous EKG monitoring was performed. The maximum heart rate attained was 88 bpm which was 64% maximum predicted heart rate and maximum workload was 1 metabolic equivalent. At rest there were no ST or T wave changes noted suggest abnormal flow reserve at peak infusion nonspecific ST-T wave changes were noted we did not note any abnormal flow reserve. Resting blood pressure 164/80 final blood pressures 150/78. Myocardial perfusion protocol. 11.8 mCi of technetium 99m sestamibi was injected at rest. 0.4 mg of regadenoson was infused per usual protocol peak infusion 32.5 mCi of technetium 99m sestamibi was injected stress images were obtained stress and rest images were reconstructed and compared in the short axis vertical and horizontal long axis. Gated images were also obtained Perfusion SPECT analysis: Review of the stress images demonstrate normal uptake of tracer noted in all areas of the myocardium. The resting images similar demonstrate normal uptake of tracer noted in all areas of the myocardium. No areas of reversibility are noted suggest ischemia no previous infarct is noted. Gated SPECT analysis: The gated ejection fraction is noted to be 64%. Conclusion: Normal pharmacologic myocardial perfusion stress test. Preserved ejection fraction.
[2019-06-24] MEDS: hydrALAZINE 20 MG/ML Vial 5 MG IV (11:30)
[2019-06-24] MEDS: Lisinopril 10 MG Tablet PO (11:30)
[2019-06-24] MEDS: 0.9% NaCl Peripheral Flush Adult/Peds IV (11:31)
--- NOTE | 2019-06-24 13:45 | DCINST_ITS ---
- Discharge Diagnoses Current Active Problems: Current Active and Chronic Problems Syncope and collapse (Acute) Nasal fracture (Acute) You will use the following diet at home:: Cardiac Your food should be the consistency of: Regular Your liquids should be the consistency of: Regular/Thin Discharge Activity: Return to Normal Activity Additional Instructions: Check blood pressure daily starting tomorrow. Record results. Show these to your PCP at follow up. Allergies/Adverse Reactions: Allergies atorvastatin [From Lipitor] Adverse Reaction (Verified 06/22/19 21:16) Other Medications to take at Discharge Lisinopril [Zestril] 10 mg PO DAILY #30 tab 06/24/19 The following prescriptions were given: Lisinopril [Zestril] 10 mg PO DAILY #30 tab Transmission Status: Pending to [id number] Orders to be completed after discharge: 30-Day Event Recorder [facility] Time Frame: 06/24/19, Location: None Selected Primary Care Physician: Jonathan Holliday MD [Primary Care Provider] - Please follow up with your Primary Care Physician in: 1 Test Results: Test results from this visit will be discussed in further detail at your follow- up appointment, if applicable. Please Follow Up With: Peg Ma MD When: As directed Proposed Discharge Date: 06/24/19
--- NOTE | 2019-06-24 13:47 | PCM.DC.SUM ---
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 No acute intracranial hemorrhage or mass effect. 2. Right periorbital soft tissue swelling/hematoma. 3. Central parenchymal volume loss. White matter changes that are nonspecific but most commonly associated with chronic small vessel ischemic disease. 4. Nondisplaced nasal fractures. CT/Sinus/Facial Bone IMPRESSION: 1. Nondisplaced nasal fractures. 2. Right periorbital soft tissue swelling/hematoma. 3. Right malar soft tissue swelling. 4. Air-fluid level in the right maxillary sinus but no associated sinus/orbital fracture seen. RAD/Chest PA and Lateral IMPRESSION: 1. No acute cardiopulmonary process. Echo: Interpretation Summary Normal LV size. Moderate concentric left ventricular hypertrophy. Left ventricular systolic function is normal. Stage 1 diastolic dysfunction. The estimated ejection fraction is 65 %. Bioprosthetic aortic valve. Stress test: Conclusion: Normal pharmacologic myocardial perfusion stress test. Preserved ejection fraction. Consultations: Cardiology-[facility] Operations: None Procedures: 2-D Echocardiogram, Stress test Summary of Care Provided: Hospital course: The patient is a 84 year old M with past medical history of coronary artery disease with prior CABG, history of bovine aortic valve replacement, hypertension, hyperlipidemia, who presents to the emergency room after experiencing a syncopal episode. The patient was walking outside of his house when he suddenly collapsed. He had no recollection of any symptoms leading to the collapse. He woke up on the ground. He had no postictal phase, no tongue biting, no shaking, no loss of bowel or bladder control. Is no history of seizure. He is brought to the emergency room and had an EKG which showed first-degree AV block, CT of the brain which showed nondisplaced nasal fractures, no other acute issues. He did have significant edema and ecchymosis in his face from striking his head. Chest x-ray was negative, troponin was negative. Prior to his syncopal episode he was out cutting the grass in the hot weather and not drinking water, he had only eaten blueberries for lunch. Is felt that he likely had a vasovagal episode. He was admitted to the PCU and placed on telemetry. Cardiology was consulted. Also notably the patient had stopped taking all of his home medications about 2 months prior. He was given IV fluids. He underwent a stress test which was negative. He had an echocardiogram with results as above which was unremarkable. He had a carotid ultrasound which is pending at this time. He had no events on telemetry. Cardiology recommended that he be discharged home with a 30-day event monitor. He had uncontrolled blood pressure while he was here and was started on lisinopril. He will need to check his blood pressure at home and likely need restarted on other agents. Deferring starting aspirin at this time as he has significant ecchymosis in his face, and I am just deferring starting a statin at this time as he has an allergy to Lipitor. I also deferred starting a beta-nathanael as he has a mild bradycardia at times. Will likely need to be started on aspirin down the road and trialed on a different statin as directed by his post adoption coordinator. He was discharged home in stable condition will need to follow-up with his PCP in 1 week and follow-up with cardiology as directed. This patient was seen by Dain Hernandez PA-C under the supervision of Doctor Goldman. [] Patient Problems: Active and Suspected Problems Syncope and collapse (Acute) Nasal fracture (Acute) - Physical Exam General: Alert, Oriented x3, Cooperative HEENT: Atraumatic, PERRLA, EOMI, Normocephalic, - - swelling, ecchymosis-periorbital, nasal Neck: Supple, No JVD, Negative Carotid Bruits Lungs: Clear to auscultation, Normal air movement Cardiovascular: Regular rate, No murmurs Abdomen: Bowel Sounds Present, Soft, Non Tender Extremities: No edema, Capillary Refill Less than 3 Seconds Skin: No rashes, No breakdown Musculoskeletal: No Tenderness to Palpation of Joints or Extremities Neurological: Cranial nerves II-XII grossly intact Psych/Mental Status: Normal Affect, Appropriate, Alert and oriented to time, place, person, mood and affect Vital Signs Temp Pulse Resp BP Pulse Ox 98.3 F 74 18 149/69 H 98 06/24/19 12:09 06/24/19 12:09 06/24/19 12:09 06/24/19 12:09 06/24/19 12:09 Oxygen Delivery Method Room Air Weight: 134 lb 11.239 oz Body Mass Index (BMI) 20.5 Orthostatic Vital Signs Start: 06/22/19 22:23 Freq: q24h Status: Active Protocol: Activity Type Activity Date Activity User E-Sign Co-Sign Detail Recorded Client Recorded Date Recorded By Document 06/24/19 11:01 KS [id number] 06/24/19 11:05 KS 06/24/19 11:01 Orthostatic Vitals Standing -Blood Pressure (90/60-120/80 mm Hg) 192/90 H -Extremity Use Right Arm -Pulse Rate (60-100 beats/min) 76 Sitting -Blood Pressure (90/60-120/80 mm Hg) 178/82 H -Extremity Use Right Arm -Pulse Rate (60-100 beats/min) 68 Lying -Blood Pressure (90/60-120/80 mm Hg) 178/75 H -Extremity Use Right Arm -Pulse Rate (60-100 beats/min) 67 Intake and Output for Last 24 Hours 06/22/19 06/23/19 06/24/19 23:59 23:59 23:59 Intake Total 367 / 367 2078 / 2578 1020 / 1020 Output Total 600 / 600 Balance 367 / 367 1477 / 1977 1020 / 1020 Laboratory Tests Past 24 Hrs 06/24/19 05:20 WBC 8.1 RBC 3.85 L Hgb 13.3 Hct 39.8 L MCV 103.4 H MCH 34.5 H MCHC 33.4 RDW Std Deviation 52.7 H RDW Coeff of Dennis 13.8 Plt Count 144 L MPV 10.1 Immature Gran % (Auto) 0.200 Neut % (Auto) 45.5 L Lymph % (Auto) 39.4 [place] % (Auto) 14.7 H Eos % (Auto) 0.0 Baso % (Auto) 0.2 Absolute Neuts (auto) 3.7 Absolute Lymphs (auto) 3.17 Absolute Nucleated RBC 0.00 Nucleated RBC % 0 Discharge Diet: Low fat/ Low Cholesterol, 2000 mg Sodium Diet Discharge Activity: Return to Normal Activity Home Medications: Medications to take at Discharge Lisinopril [Zestril] 10 mg PO DAILY #30 tab 06/24/19 Following Prescrptions Were Given to Patient: Lisinopril [Zestril] 10 mg PO DAILY #30 tab Transmission Status: [id number] Other Amb Orders: 30-Day Event Recorder [facility] Time Frame: 06/24/19, Location: None Selected Primary Care Physician: Jonathan Holliday MD [Primary Care Provider] - Please follow up with your Primary Care Physician in: 1 Please Follow Up With: Peg Ma MD When: As directed Disposition: Home Minutes spent on discharge:: 35 Patient Condition:: Stable Medical Necessity - Tobacco Use Smoking Status: Never smoker Meaningful Use Info Meaningful Use Diagnoses (Choose all that apply): None applicable <Claudio Goldman - Last Filed: 06/24/19 15:25> Discharge Date and Diagnosis - Primary Discharge Diagnosis Active and Suspected Problems Syncope and collapse (Acute) Nasal fracture (Acute) Hospital Course and Treatment Summary of Care Provided: This patient was seen in conjunction with Dain Hernandez PA-C . I have independently interviewed and examined the patient and reviewed pertinent historical, laboratory, and other data. Please refer to Dain Hernandez PA-C note for details of this patient's presentation, findings, and recommendations. I have reviewed Dain Hernandez PA-C note and concur with documented findings. In brief, patient is a 84-year-old gentleman admitted with a syncopal episode Assessment: 1. Syncopal episode suspected to be secondary to orthostatic hypotension 2. Nasal fracture with periorbital bruising following patients for 3. Essential hypertension 4. Dyslipidemia 5. CAD with previous CABG 6. Valvular heart disease with history of bovine aortic valve Hospital course as documented above by dain Hutson PA-C - Physical Exam Vital Signs Temp Pulse Resp BP Pulse Ox 98.3 F 74 18 149/69 H 98 06/24/19 12:09 06/24/19 12:09 06/24/19 12:09 06/24/19 12:09 06/24/19 12:09 Oxygen Delivery Method Room Air Weight: 61.1 kg Body Mass Index (BMI) 20.5 Orthostatic Vital Signs Start: 06/22/19 22:23 Freq: q24h Status: Active Protocol: Activity Type Activity Date Activity User E-Sign Co-Sign Detail Recorded Client Recorded Date Recorded By Document 06/24/19 11:01 HECTOR [id number] 06/24/19 11:05 HECTOR 06/24/19 11:01 Orthostatic Vitals Standing -Blood Pressure (90/60-120/80) 192/90 H -Extremity Use Right Arm -Pulse Rate (60-100) 76 Sitting -Blood Pressure (90/60-120/80) 178/82 H -Extremity Use Right Arm -Pulse Rate (60-100) 68 Lying -Blood Pressure (90/60-120/80) 178/75 H -Extremity Use Right Arm -Pulse Rate (60-100) 67 Intake and Output for Last 24 Hours 06/22/19 06/23/19 06/24/19 23:59 23:59 23:59 Intake Total 367 / 367 2078 / 2578 1020 / 1020 Output Total 600 / 600 Balance 367 / 367 1477 / 1977 1020 / 1020 Laboratory Tests Past 24 Hrs 06/22/19 06/24/19 16:05 05:20 WBC 8.1 RBC 3.85 L Hgb 13.3 Hct 39.8 L MCV 103.4 H MCH 34.5 H MCHC 33.4 RDW Std Deviation 52.7 H RDW Coeff of Dennis 13.8 Plt Count 144 L MPV 10.1 Immature Gran % (Auto) 0.200 Neut % (Auto) 45.5 L Lymph % (Auto) 39.4 [place] % (Auto) 14.7 H Eos % (Auto) 0.0 Baso % (Auto) 0.2 Absolute Neuts (auto) 3.7 Absolute Lymphs (auto) 3.17 Absolute Nucleated RBC 0.00 Nucleated RBC % 0 Diff Path Review Reviewed Code Visit OBSV E&M: 50002 Observation care discharge
[2019-06-24 14:29] LABS: Pathologist Review Reviewed
== END 2019-06-24 16:53 | disposition home or self-care (01) | DRG 312 ==
LOC: ED 20:20 → PCU 20:34
PROVIDERS: Internal Medicine; Admitting Provider Family Medicine; Emergency Provider Emergency Medicine; Family Provider Internal Medicine; PCP Internal Medicine; Referring Provider Family Medicine; Visit Provider Internal Medicine
DX: R55 Syncope and collapse (principal); S02.2XXA Fracture of nasal bones, initial encounter for closed fracture; W19.XXXA Unspecified fall, initial encounter; Y92.018 Other place in single-family (private) house as the place of occurrence of the external cause; S05.11XA Contusion of eyeball and orbital tissues, right eye, initial encounter; I25.10 Atherosclerotic heart disease of native coronary artery without angina pectoris; I44.0 Atrioventricular block, first degree; Y93.01 Activity, walking, marching and hiking; E78.5 Hyperlipidemia, unspecified; I10 Essential (primary) hypertension; Z95.1 Presence of aortocoronary bypass graft; Z95.3 Presence of xenogenic heart valve
CPT/HCPCS: 36415; 70450; 70486; 71046; 78452; 80048; 80053; 81001; 84484; 85025; 85610; 85730; 93005; 93017; 93306; 93880; 97110; 97161; 97166; 97530; 97802; 99285; A9500; J7030; A4216; J2785